=== PATIENT | male | born 1985 | race Caucasian/White ===

== ENCOUNTER 2019-08-17 16:44 | Emergency (ER) | payer OTHER ==
[~2019-08-17] VITALS: Ht 177.8 cm; Wt 88.7 kg
[2019-08-17 16:47] VITALS: BP 133/85
--- NOTE | 2019-08-17 17:31 | NUR ---
DC INSTRUCTIONS REVIEWED
== END 2019-08-17 17:41 | disposition home or self-care (01) ==
LOC: ED 17:30
DX: R21 Rash and other nonspecific skin eruption (principal)
CPT/HCPCS: 99283